=== PATIENT | female | born 1995 | race Two or more races ===

== ENCOUNTER 2023-10-07 17:04 | Emergency (ER) | payer OTHER ==
[2023-10-07 17:10] VITALS: BP 113/75; PULSE 75; RESP 18; TEMP 98; BMI 26.7
[2023-10-07] MEDS ORDERED: ONDANSETRON *ODT* 4 MG TABLET ONE (17:52)
[2023-10-07] MEDS ORDERED: ACETAMINOPHEN 325 MG TABLET (FP) ONE (17:52)
[2023-10-07] MEDS: ACETAMINOPHEN 325 MG TABLET (FP) PO ONE (18:02)
[2023-10-07] MEDS: ONDANSETRON *ODT* 4 MG TABLET SL ONE (18:02)
[2023-10-07 18:13] LABS: EPI CELLS >36 /uL (0-25.1); HYALINE CASTS 0 /uL (0-3.1); URINE APPEARANCE CLEAR; URINE BACTERIA 464 /uL (0-1359); URINE BILIRUBIN NEGATIVE (NEGATIVE); URINE COLOR YELLOW; URINE GLUCOSE (UA) NEGATIVE (NEGATIVE); URINE KETONE 1+ (NEGATIVE); URINE LEUK ESTERASE 3+ (NEGATIVE); URINE NITRITE NEGATIVE (NEGATIVE); URINE PROTEIN NEGATIVE (NEGATIVE); URINE RBC 49 /uL (0-23.9); URINE UROBILINOGEN 0.2 mg/dL (0.2-1.0); URINE WBC 33 /uL (0-25.8)
[2023-10-07 18:18] LABS: HCG,QUALITATIVE URINE Positive
[2023-10-07 18:22] LABS: BASO % 0.3 % (0-2.0); EOS % 0.5 % (0-4.5); LYMPH % 11.8 % (8-40); MCH 28.3 pg (25.7-33.7); MCHC 34.1 g/dl (32.0-36.0); MEAN CELL VOLUME 82.9 fl (80-96); MEAN PLT VOLUME 7.9 fl (7.5-11.1); MONO % 5.2 % (3.8-10.2); NEUT % 82.2 % (42.8-82.8); PLATELET COUNT 410 10^3/uL (134-434); RBC 4.95 M/mm3 (3.60-5.2); RDW 13.6 % (11.6-15.6); WHITE BLOOD COUNT 15.1 K/mm3 (4.0-10.0)
[2023-10-07 18:39] LABS: POTASSIUM 3.9 mmol/L (3.5-5.1)
[2023-10-07 18:41] LABS: CALCIUM 9.6 mg/dL (8.5-10.1)
[2023-10-07] MEDS ORDERED: CEPHALEXIN MONOHYDRATE 500 MG CAPSULE (UD) ONE (18:41)
[2023-10-07 18:42] LABS: ALBUMIN 4.4 g/dl (3.4-5.0); BLOOD UREA NITROGEN 13.3 mg/dL (7-18)
[2023-10-07 18:45] LABS: CREATININE 0.6 mg/dL (0.55-1.3)
[2023-10-07 18:46] LABS: TOT PROT 8.3 g/dl (6.4-8.2)
[2023-10-07] MEDS: CEPHALEXIN MONOHYDRATE 500 MG CAPSULE (UD) PO ONE (18:46)
[2023-10-07 18:47] LABS: BILIRUBIN,TOTAL 0.4 mg/dL (0.2-1)
== END 2023-10-07 20:26 | disposition home or self-care (01) ==
LOC: JER 17:04
DX: O23.41 Unspecified infection of urinary tract in pregnancy, first trimester (principal); O23.591 Infection of other part of genital tract in pregnancy, first trimester; B37.31 Acute candidiasis of vulva and vagina; O26.891 Other specified pregnancy related conditions, first trimester; R10.30 Lower abdominal pain, unspecified; Z3A.01 Less than 8 weeks gestation of pregnancy
CPT/HCPCS: 36415; 76817-TC; 80053; 81003; 84702; 84703; 85025; 86850; 86900; 86901; 87077; 87086; 99284-25; Q0162

== ENCOUNTER 2023-10-10 15:26 | Emergency (ER) | payer OTHER ==
[2023-10-10 15:57] VITALS: BP 103/69; PULSE 69; RESP 16; TEMP 97.7; BMI 24.7
[2023-10-10 17:01] LABS: BASO % 0.5 % (0-2.0); EOS % 0.9 % (0-4.5); HEMATOCRIT 37.8 % (32.4-45.2); HEMOGLOBIN 12.8 GM/dL (10.7-15.3); LYMPH % 16.3 % (8-40); MCH 28.2 pg (25.7-33.7); MCHC 33.9 g/dl (32.0-36.0); MEAN CELL VOLUME 83.1 fl (80-96); MEAN PLT VOLUME 8.1 fl (7.5-11.1); MONO % 5.9 % (3.8-10.2); NEUT % 76.4 % (42.8-82.8); PLATELET COUNT 392 10^3/uL (134-434); RBC 4.54 M/mm3 (3.60-5.2); RDW 13.8 % (11.6-15.6); WHITE BLOOD COUNT 12.7 K/mm3 (4.0-10.0)
[2023-10-10 17:28] LABS: POTASSIUM 4.2 mmol/L (3.5-5.1)
[2023-10-10 17:30] LABS: CALCIUM 9.8 mg/dL (8.5-10.1)
[2023-10-10 17:31] LABS: BLOOD UREA NITROGEN 11.2 mg/dL (7-18)
[2023-10-10 17:33] LABS: CREATININE 0.5 mg/dL (0.55-1.3)
[2023-10-10 17:35] LABS: BILIRUBIN,TOTAL 0.3 mg/dL (0.2-1); TOT PROT 7.8 g/dl (6.4-8.2)
== END 2023-10-10 18:29 | disposition home or self-care (01) ==
LOC: JERFT 15:26 → JER 15:26 → JERFT 18:29
DX: O28.9 Unspecified abnormal findings on antenatal screening of mother (principal); Z3A.00 Weeks of gestation of pregnancy not specified
CPT/HCPCS: 36415; 80053; 84702; 85025; 99283-25